=== PATIENT | female | born 1985 | race Caucasian/White ===

== ENCOUNTER → 2016-07-22 | Outpatient (CLI) | payer BC ==
[~2016-07-22] MED LIST: ASCO1CHW13; CYAN1LOZ2; FERR1TAB23; MTR600X PO; OXYC-57 PO; PRENTAB26 PO
[2016-07-22 13:58] LABS: URINE APPEARANCE CLEAR (CLEAR); URINE BILIRUBIN NEG (NEG); URINE COLOR YELLOW; URINE NITRITE NEG (NEG); URINE SPECIFIC GRAVITY 1.002 (1.000-1.030); UROBILINOGEN NEG (NEG)
[2016-07-22 13:59] LABS: MANUAL MICROSCOPIC REQUIRED? NO; REVIEW REQ? NO
== END | disposition home or self-care (01) ==
LOC: C.LABSPEC 15:15
PROVIDERS: ATTEND Obstetrics & Gynecology
DX: O09.219 Supervision of pregnancy with history of pre-term labor, unspecified trimester (principal)

== ENCOUNTER → 2016-07-29 | Outpatient (CLI) | payer BC ==
[2016-07-29 12:21] LABS: BASO % 0.6 %; BASO ABS # 0.05 K/uL (0-0.2); COMPLETE YES; EOS % 0.9 %; HEMATOCRIT 35.9 % (37-47); IG% 0.1 %; LYMPH % 27.3 %; LYMPH ABS # 2.21 K/uL (1.2-3.4); MEAN CELL VOLUME 85.1 fL (80-100); MEAN CORPUSCULAR HEMOGLOBIN 29.9 pg (25-34); MEAN CORPUSCULAR HGB CONC 35.1 g/dl (32-36); MEAN PLATELET VOLUME 9.7 fL (7.4-10.4); MONO % 5.4 %; NEUT % 65.7 %; PLATELET COUNT 284 K/uL (130-400); RED BLOOD COUNT 4.22 M/uL (4.2-5.4); WHITE BLOOD COUNT 8.11 K/uL (4.8-10.8)
[2016-07-31 01:00] LABS: CHLAMYDIA TRACH RNA*** NOT DETECTED (NOT DETECTED); GC (NEIS GONORRHOEAE)RNA** NOT DETECTED (NOT DETECTED)
== END | disposition home or self-care (01) ==
LOC: C.LAB1850 11:05
PROVIDERS: ATTEND Obstetrics & Gynecology
DX: O09.91 Supervision of high risk pregnancy, unspecified, first trimester (principal)

== ENCOUNTER → 2016-09-29 | Outpatient (CLI) | payer BC ==
[2016-09-29 12:44] LABS: GTGD 50 Grams
[2016-09-30 14:10] LABS: AFP CONCENTRATION 21.7 NG/ML; AFPTS GESTATIONAL AGE 16.1 WEEKS; AFPTS INSULIN DEP DIABETIC? NO; AFPTS MATERNAL WT 166 LBS; ALPHA-FETOPROTEIN RACE CAUCASIAN=W; HISTORY OF NTD NO; REPEAT SAMPLE? NO
== END | disposition home or self-care (01) ==
LOC: C.LAB1850 09:29
PROVIDERS: ATTEND Obstetrics & Gynecology
DX: O09.212 Supervision of pregnancy with history of pre-term labor, second trimester (principal)

== ENCOUNTER → 2016-12-22 | Outpatient (CLI) | payer BC ==
[2016-12-22 10:38] LABS: HEMATOCRIT 33.3 % (37-47)
[2016-12-22 12:07] LABS: GTGD 50 Grams
[2016-12-22 13:03] LABS: URINE APPEARANCE CLEAR (CLEAR); URINE BILIRUBIN NEG (NEG); URINE COLOR YELLOW; URINE NITRITE NEG (NEG); URINE PH 6.5 (4.5-7.5); URINE SPECIFIC GRAVITY 1.009 (1.000-1.030); UROBILINOGEN NEG (NEG)
[2016-12-22 13:06] LABS: MANUAL MICROSCOPIC REQUIRED? NO; REVIEW REQ? NO
== END | disposition home or self-care (01) ==
LOC: C.LAB1850 09:37
PROVIDERS: ATTEND Obstetrics & Gynecology
DX: O09.213 Supervision of pregnancy with history of pre-term labor, third trimester (principal); Z3A.00 Weeks of gestation of pregnancy not specified

== ENCOUNTER 2017-02-16 15:49 | Inpatient (IN) | payer BC ==
[~2017-02-16] VITALS: Ht 162.6 cm; Wt 91.0 kg
[2017-02-16 16:13] VITALS: Ht 162.6 cm; Wt 91.0 kg
--- NOTE | 2017-02-16 17:45 | DIAGNOSTIC IMAGING REPORT ---
Study: biophysical profile. HISTORY: Labored difficulty. Decreased movements Findings: Fetus scores 8 out of a possible 8. movements are minimal but are nevertheless present.] Fluid index 8.23 cm. heartbeat 1 35 bpm. Anterior placenta. Estimated gestational age 36 weeks 1 day. IMPRESSION: 1. biophysical profile 8 out of a possible 8. 2. movements are present but appear somewhat diminished. Electronically signed by: Giovani Pemberton M.D. 02/16/2017 5:44 PM Dictated Date/Time: 02/16/2017 5:41 PM
[2017-02-16 18:51] LABS: BASO % 0.2 %; BASO ABS # 0.03 K/uL (0-0.2); EOS % 0.7 %; HEMATOCRIT 36.3 % (37-47); IG% 0.6 %; LYMPH % 20.3 %; LYMPH ABS # 2.91 K/uL (1.2-3.4); MEAN CELL VOLUME 86.8 fL (80-100); MEAN CORPUSCULAR HEMOGLOBIN 30.6 pg (25-34); MEAN PLATELET VOLUME 10.7 fL (7.4-10.4); MONO % 8.3 %; NEUT % 69.9 %; PLATELET COUNT 199 K/uL (130-400); RED BLOOD COUNT 4.18 M/uL (4.2-5.4); WHITE BLOOD COUNT 14.31 K/uL (4.8-10.8)
--- NOTE | 2017-02-16 18:54 | HISTORY & PHYSICAL EXAMINATION ---
DATE OF ADMISSION: 02/16/2017 PRINCIPAL DIAGNOSIS: Intrauterine at 36 weeks and 1 day in labor, breech presentation, prior section. PRINCIPAL PROCEDURE: Repeat low transverse cervical section. HISTORY OF PRESENT ILLNESS: The patient is a 31-year-old 2, para 0-1-0-1 white female who presented at the office for her regular-scheduled visit during a nonstress test. There was noted to be a 2-minute decel to the 90s, on the heart rate tracing. She was sent to labor and delivery for further monitoring, heart tones were reactive. She did have a biophysical profile which was 10/10, although it was present was decreased over the normal on the biophysical profile. She was complaining also of contractions that started earlier were getting stronger. Her first baby delivered at 31 weeks and she was unaware of contractions at that time either. She was noted to be 3-4 cm dilated by cervical exam here in L&D with a breech presentation at minus 2 station. heart tones have been reactive with another short deceleration to 90 beats per minute with rapid recovery to baseline. Because of the advanced dilation and the breech presentation, we will proceed with repeat section at this time. The patient and her agree with this plan and all their questions have been answered and are willing to proceed. PAST MEDICAL HISTORY: Significant for a didelphys uterus and mitral valve prolapse, for which she does not require antibiotic prophylaxis. PAST SURGICAL HISTORY: Right hip surgery, wisdom teeth removed and a section which was done in 2014. ALLERGIES: She has no known drug allergies. MEDICATIONS: Vielka shots and a vitamin. OBSTETRICAL AND GYNECOLOGICAL HISTORY: No history of PID, VD or herpes. She did have an abnormal Pap in the past, but they have been normal since 2004. 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 Delivery in 2015 at 31 weeks for labor with delivery of a 3 pound 12 ounce viable male infant. She had no complications following that surgery. SOCIAL HISTORY: She does not smoke or drink. FAMILY HISTORY: Noncontributory. LABORATORY DATA: Blood type is A positive. Antibody screen is negative. Pap smear was atypical cells of unknown significance but HPV negative. Rubella is immune. RPR is nonreactive. Hepatitis is negative. HIV is negative. Chlamydia and GC are negative. Panorama was negative. Anatomy was complete and normal. Growth scans have been within normal limits. NSTs have been reactive until today. Glucola screens were negative. Hemoglobin at 28 weeks was 11.3, hematocrit 33.3. PHYSICAL EXAMINATION: VITAL SIGNS: Stable. She is afebrile. LUNGS: Clear to auscultation. HEART: Regular rate and rhythm. No murmurs or gallops appreciated. ABDOMEN: Gravid, estimated weight is 6 pounds. She has a well-healed low transverse skin incision. No hepatosplenomegaly or masses palpable. PELVIC: Cervix is 3-4 cm soft, thin and minus 2 station with glenna breech presentation. EXTREMITIES: With trace edema. ASSESSMENT: A 31-year-old now presents at 36 weeks with breech presentation and in early labor. Prior section was done at 31 weeks because of labor. Please see the orders for further directions. MTDD
[2017-02-16 18:58] LABS: COMPLETE YES; MEAN CORPUSCULAR HGB CONC 35.3 g/dl (32-36)
[2017-02-16] MEDS ORDERED: CEFAZOLIN IV 2,000 MG in DEXTROSE 5% 50ML 50 ML IV SCH (19:00)
[2017-02-16] MEDS ORDERED: CITRIC ACID/SODIUM CITRATE 15 ML UDC PO ONE (19:00)
[2017-02-16] MEDS ORDERED: MoRPHine SULFATE PF 1 MG/ML 10 ML AMP/VIAL ONE (19:33)
[2017-02-16] MEDS ORDERED: SODIUM CHLORIDE 0.9% 1000ML 1,000 ML IV PRN (20:27)
[2017-02-16] MEDS ORDERED: LACTATED RINGER'S 1000ML 500 ML IV PRN (20:27)
[2017-02-16] MEDS ORDERED: NALOXONE HCL INJ 0.08 MG in SYRINGE 1.8 ML IV PRN (20:27)
[2017-02-16] MEDS ORDERED: NALOXONE HCL INJ 1 MG in SODIUM CHLORIDE 0.9% 1000ML 1,000 ML IV PRN (20:27)
[2017-02-16] MEDS ORDERED: FENTANYL CITRATE INJ 50 MCG/1 ML 2 ML VIAL IV PRN (20:30)
[2017-02-16] MEDS ORDERED: MEPERIDINE HCL 25 MG/ML CARP IV PRN ×2 (20:30)
[2017-02-16] MEDS ORDERED: MoRPHine SULFATE PF 1 MG/ML 10 ML AMP/VIAL EPI PRN (20:30)
[2017-02-16] MEDS ORDERED: HYDROmorphone INJ 1 MG/ML SYR IV PRN (20:30)
[2017-02-16] MEDS ORDERED: LABETALOL HCL IV 5 MG/ML 20ML IV PRN (20:30)
[2017-02-16] MEDS ORDERED: NALBUPHINE HCL INJ 10 MG/ML AMP IV PRN (20:30)
[2017-02-16] MEDS ORDERED: NO NARCOTICS OR SEDATIVES SCH (20:30)
[2017-02-16] MEDS ORDERED: ATROPINE SULFATE 0.1 MG/ML 5ML SYR IV PRN (20:30)
[2017-02-16] MEDS ORDERED: NALOXONE HCL 0.4 MG/1 ML VIAL/CARP IV PRN (20:30)
[2017-02-16] MEDS ORDERED: DiphenhydrAMINE HCL 50 MG/ML VIAL IV PRN ×2 (20:30)
[2017-02-16] MEDS ORDERED: MoRPHine SULFATE 2 MG/ML CARP IV PRN (20:30)
[2017-02-16] MEDS ORDERED: ONDANSETRON INJ 2 MG/ML 2 ML VIAL IV PRN ×2 (20:30)
[2017-02-16] MEDS ORDERED: EpHEDrine SULFATE INJ 50 MG/ML AMP IV PRN ×2 (20:30)
[2017-02-16] MEDS ORDERED: OXYTOCIN INJ 10 UNITS/ML VIAL ONE (20:51)
[2017-02-16] MEDS ORDERED: EpHEDrine SULFATE INJ 50 MG/ML AMP ONE (20:51)
[2017-02-16] MEDS ORDERED: PROMETHAZINE HCL INJ 25 MG in SODIUM CHLORIDE 0.9% 50ML 50 ML IV PRN (21:00)
[2017-02-16] MEDS ORDERED: MAGNESIUM HYDROXIDE SUSP 30 ML UDC PO PRN (21:00)
[2017-02-16] MEDS: SIMETHICONE 80 MG CHEW PO SCH (21:00)
[2017-02-16] MEDS ORDERED: SENNA 8.6 MG TAB PO PRN (21:00)
[2017-02-16] MEDS ORDERED: LANOLIN OINT EXT PRN ×2 (21:00)
--- NOTE | 2017-02-16 21:07 | [facility] Operative Report ---
Operative Report Operative Date Feb 16, 2017. Pre-Operative Diagnosis 1. Breech and active labor at 36 weeks Post-Operative Diagnosis Same Procedure(s) Performed Repeat caesarean section with lower uterine transverse incision. Delivery of live female child at 2000- 6lbs [address]oz[address] Surgeon Dr. Mckeon Aromatherapist Surgeon(s) Prisca Gabriel RN Estimated Blood Loss 600CC Findings uterine didelphys with in right uterine horn. normal bilateral ovaries & tubes Fluids 1600 Specimens Cord blood Placenta-hold Drains Humphries to straight drainagae Anesthesia SAB Complication(s) None Disposition L&D I attest to the content of the Intraoperative Record and any orders documented therein. Any exceptions are noted below.
[2017-02-16] MEDS: OXYTOCIN INJ 20 UNITS in LACTATED RINGER'S 1000ML 1,000 ML IV SCH (21:24)
[2017-02-16] MEDS: KETOROLAC TROMETHAMINE 30 MG/ML VIAL IV. PRN (22:15)
[2017-02-16 23:30] VITALS: O2SAT 96
[2017-02-16 23:50] VITALS: BP 115/82; PULSE 63; TEMP 36.7; O2SAT 97
[2017-02-17] VITALS (20 sets, daily range): BP systolic 108–126; BP diastolic 63–78; PULSE 60–84; TEMP 36.5–37.1; O2SAT 93–98
--- NOTE | 2017-02-17 00:42 | Anesthesiology Progress Note ---
Anesthesia Post Op Note Date & Time Feb 17, 2017 at 00:42 Vital Signs Pain Intensity: 2.0 Notes Mental Status: alert / awake / arousable, participated in evaluation Pt Amnestic to Procedure: Yes Nausea / Vomiting: adequately controlled Pain: adequately controlled Airway Patency, RR, SpO2: stable & adequate BP & HR: stable & adequate Hydration State: stable & adequate Neuraxial Anesthesia: was administered, sensory block is resolving Anesthetic Complications: no major complications apparent
--- NOTE | 2017-02-17 01:23 | OB/GYN Progress Note ---
[employer] Progress Note Date of Service Feb 17, 2017. Subjective conversation w/ patient, physical exam, chart review, lab review Ambulation: limited ambulation Voiding: ambriz catheter in place Passing Gas: Yes Diet Tolerance: Clear Liquids Lochia: Moderate Feeding Type: Breast Feeding Pain: /10 Review of Systems Constitutional: No fever Respiratory: No shortness of breath Cardiac: No chest pain Abdomen: No nausea, No vomiting Female : No dysuria Objective Vital Signs Date Time Temp Pulse Resp B/P (MAP) Pulse Ox O2 Delivery O2 Flow Rate FiO2 02/17/17 00:30 18 97 02/16/17 23:50 97 Room Air 02/16/17 23:50 36.7 63 16 115/82 (93) 97 Room Air 02/16/17 23:30 16 96 Physical Exam General Appearance: WELL-APPEARING Respiratory/Chest: lungs clear, normal breath sounds, no respiratory distress Cardiovascular: regular rate, rhythm Abdomen: normal bowel sounds, non tender, soft Fundus: Firm, Relation to Umbilicus (3 FB) Incision Description: Clean, Dry & Intact Extremities: non-tender, + pedal edema (very mild) Laboratory Results Last 24 Hours Test 02/16/17 18:32 White Blood Count 14.31 K/uL Red Blood Count 4.18 M/uL Hemoglobin 12.8 g/dL Hematocrit 36.3 % Mean Corpuscular Volume 86.8 fL Mean Corpuscular Hemoglobin 30.6 pg Mean Corpuscular Hemoglobin Concent 35.3 g/dl Platelet Count 199 K/uL Mean Platelet Volume 10.7 fL Neutrophils (%) (Auto) 69.9 % Lymphocytes (%) (Auto) 20.3 % Monocytes (%) (Auto) 8.3 % Eosinophils (%) (Auto) 0.7 % Basophils (%) (Auto) 0.2 % Neutrophils # (Auto) 9.99 K/uL Lymphocytes # (Auto) 2.91 K/uL Monocytes # (Auto) 1.19 K/uL Eosinophils # (Auto) 0.10 K/uL Basophils # (Auto) 0.03 K/uL RDW Standard Deviation 41.1 fL RDW Coefficient of Variation 13.0 % Immature Granulocyte % (Auto) 0.6 % Immature Granulocyte # (Auto) 0.09 K/uL Medications Current Inpatient Medications Medications (Trade) Dose Ordered Sig/Demi Route Start Time Stop Time Status Last Admin Dose Admin Naloxone HCl (Narcan Inj) 0.1 mg UD PRN IV 02/16/17 20:30 02/17/17 13:40 Diphenhydramine HCl (Benadryl Inj) 25 mg Q6H PRN IV 02/16/17 20:30 02/17/17 13:40 Nalbuphine HCl (Nubain Inj) 5 mg Q10M PRN IV 02/16/17 20:30 02/17/17 13:40 Naloxone HCl 1 mg/ Sodium Chloride 1,002.5 ml @ 50 mls/hr Q20H3M PRN IV 02/16/17 20:27 02/17/17 13:40 Ondansetron HCl (Zofran Inj) 4 mg Q6H PRN IV 02/16/17 20:30 02/17/17 13:40 Ketorolac Tromethamine (Toradol Inj) 30 mg Q6H PRN IV. 02/16/17 20:30 02/17/17 13:40 02/16/17 22:15 30 MG Meperidine HCl (Demerol Inj) 25 mg Q15M PRN IV 02/16/17 20:30 02/17/17 13:40 02/17/17 00:43 25 MG Miscellaneous Information (Dc Intraspinal Morphine) 1 ea 1340 ONCE N/A 02/17/17 13:40 02/17/17 13:41 Miscellaneous Information (No Narcotics Or Sedatives) 1 ea UD N/A 02/16/17 20:30 02/17/17 13:40 Naloxone HCl 0.08 mg/Syringe 2 ml @ 1 mls/min Q2M PRN IV 02/16/17 20:27 02/17/17 13:40 Diphenhydramine HCl (Benadryl Cap) 50 mg HS PRN PO 02/16/17 20:30 02/17/17 13:40 Diphenhydramine HCl (Benadryl Inj) 25 mg HS PRN IV 02/16/17 20:30 02/17/17 13:40 Morphine Sulfate (MoRPHine SULFATE INJ) 2 mg Q6H PRN IV 02/16/17 20:30 02/17/17 13:40 Lactated Ringer's 500 ml @ 999 mls/hr Q31M PRN IV 02/16/17 20:27 02/17/17 13:40 Ephedrine Sulfate (EpHEDrine SULFATE INJ) 10 mg Q5M PRN IV 02/16/17 20:30 02/17/17 13:40 Morphine Sulfate (Duramorph Pf Inj) TODAY PRN EPI 02/16/17 20:30 02/17/17 13:40 Sodium Chloride 1,000 ml @ 15 mls/hr Q24H PRN IV 02/16/17 20:27 02/17/17 13:40 Oxytocin 20 units/ Lactated Ringer's 1,002 ml @ 125 mls/hr Q8H1M IV 02/16/17 20:57 02/17/17 12:57 02/16/17 21:24 125 MLS/HR Ketorolac Tromethamine (Toradol Inj) 30 mg Q6H PRN IV. 02/17/17 13:40 02/22/17 13:39 Meperidine HCl (Demerol Inj) 50 mg Q4H PRN IV 02/17/17 13:40 03/03/17 13:39 Meperidine HCl (Demerol Inj) 75 mg Q4H PRN IV 02/17/17 13:40 03/03/17 13:39 Oxycodone/ Acetaminophen (Percocet 5-325mg Tab) 1 tab Q4H PRN PO 02/17/17 13:40 03/03/17 13:39 Oxycodone/ Acetaminophen (Percocet 5-325mg Tab) 2 tab Q4H PRN PO 02/17/17 13:40 03/03/17 13:39 Ibuprofen (Motrin Tab) 600 mg Q4H PRN PO 02/16/17 21:00 03/18/17 20:59 Promethazine HCl 25 mg/Sodium Chloride 51 ml @ 204 mls/hr Q4H PRN IV 02/16/17 21:00 03/18/17 20:59 Ondansetron HCl (Zofran Inj) 4 mg Q4H PRN IV 02/17/17 13:40 03/19/17 13:39 Prenat Multivit/ Mathews/Iron/Folic Ac ( Vitamin Tab) 1 tab DAILY PO 02/17/17 08:00 03/19/17 07:59 Bisacodyl (Dulcolax Tab) 5 mg HS ONCE PO 02/17/17 22:00 02/17/17 22:01 Docusate Sodium (coLACE CAP) 100 mg BID PO 02/17/17 08:00 03/19/17 07:59 Magnesium Hydroxide (Milk Of Magnesia Susp) 30 ml HS PRN PO 02/16/17 21:00 03/18/17 20:59 Lanolin (Lanolin Oint) PRN PRN EXT 02/16/17 21:00 03/18/17 20:59 Zolpidem Tartrate (Ambien Tab) 5 mg HSZ PRN PO 02/17/17 13:40 03/19/17 13:39 Simethicone (Mylicon Chew Tab) 80 mg QID PO 02/16/17 21:00 03/18/17 20:59 Diphenhydramine HCl (Benadryl Cap) 25 mg QID PRN PO 02/17/17 13:40 03/19/17 13:39 Diphenhydramine HCl (Benadryl Inj) 25 mg QID PRN IV 02/17/17 13:40 03/19/17 13:39 Senna (Senokot Tab) 17.2 mg HS PRN PO 02/16/17 21:00 03/18/17 20:59 Assessment and Plan Post-Op Day Number: 1 Continue Routine Care: Resident Physician Supervision Note: I interviewed and examined the patient. Discussed with Dr. Rodriguez and agree with findings and plan as documented in the note. Any exceptions or clarifications are listed here: [None] Documented By: Ml Cortez A/P: This is a 31 y/o female, , POD#1 s/p repeat for breech and active labor at 36 weeks. She is clinically stable. Plan: - Vitals signs are reviewed and WNL (Tmax 36.9 ) - Last Hgb is 12.8. This AM pending - Blood type A+, GBS unknown, Rubella Immune - Routine post operative care - Encourage ambulation, monitor and control pain with medication as needed, continue with regular diet as tolerated and monitor lochia - Stool softeners and sitz bath recommended - Encourage breast feeding and educate about breast feeding Resident Involvement: Resident Care Provided Care Provided: OB Delivery
--- NOTE | 2017-02-17 03:49 | OPERATIVE REPORT ---
DATE OF OPERATION: 02/16/2017 SURGEON: Ml Mart MD TITLE 1 TUTOR: Prisca Gabriel RN PREOPERATIVE DIAGNOSES: Intrauterine at 36 weeks in labor with breech presentation, prior section and uterine didelphys. POSTOPERATIVE DIAGNOSES: Same plus delivery of a viable female infant, 6 pounds 7 ounces. PROCEDURE: Repeat low transverse cervical section. ANESTHESIA: Subarachnoid block. BLOOD LOSS: 600 mL. HISTORY: The patient is a 31-year-old 2, para 0-1-0-1 white female who had presented for her regularly scheduled office visit for a nonstress test. There had been a 2-minute deceleration at that time. She was sent to labor and delivery for further monitoring, even though she had a 10/10 biophysical profile. She had another deceleration to 90 beats per minute with rapid recovery to baseline. The patient was feeling uncomfortable with contractions and on pelvic exam her cervix was noted to be 3-4 cm dilated, 80% effaced with presenting breech. Because of the deceleration and the more advanced dilation, we elected to proceed with repeat low transverse cervical section. The patient and are both agreeable to this and all their questions were answered to their satisfaction. GROSS FINDINGS: Uterus is gravid with the uterus in the right horn. Bilateral ovaries and fallopian tubes are grossly normal. The left horn appears to be rudimentary and connects with the uterine cavity. The was in the complete breech presentation as well. DESCRIPTION OF PROCEDURE: After patient received adequate subarachnoid block, she was prepped and draped in the usual sterile fashion. A low transverse skin incision was made with a scalpel and carried to the fascia with the same scalpel. The fascial incision was then extended with Huston scissors and the underlying rectus muscle was bluntly and sharply dissected off of the overlying fascia. The rectus muscles were divided along the midline and the underlying peritoneum elevated and entered bluntly. The bladder was then taken down off of the anterior surface of the uterus. As noted earlier, the was in the right uterine horn. The bladder was taken down off of the anterior surface of the right horn of the uterus and placed behind the bladder blade. The lower uterine segment was then entered with the scalpel and extended transversely. The was delivered from the complete breech presentation with moderate fundal pressure. Mouth and nasopharynx were suctioned upon delivery. There was spontaneous crying and the was moving all 4 limbs. The cord was clamped and cut and the was handed off to Dr. Fitch who was in attendance as patient navigator. The placenta was then manually removed and the uterus exteriorized and covered with a clean lap sponge. The uterine cavity was explored and found to be free of any placental tissue or membranes. The uterus was then closed in 2 layers in a running locking imbricating fashion with 0 Monocryl. The incision was reinforced at the area of the septum with additional stitches of Monocryl in a [id number] fashion. The posterior cul-de-sac was then irrigated with normal saline. The incision was examined and found to have excellent hemostasis after putting the uterus back inside the abdominal cavity, there noted to be oozing at the center of the incision on the uterus. This was secured with running stitch of 0 Monocryl. At this point, hemostasis noted to be excellent. The gutters were explored and found to be free of any clot or fluid. The anterior cul-de-sac was then irrigated with normal saline. The uterine incision continued to have excellent hemostasis and then the rectus muscles were closed in the midline with individual stitches of 0 Monocryl. The fascia was closed in a running fashion with 0 Vicryl. The adipose layer was then irrigated with normal saline. Bleeding was controlled with the Bovie. She had a keloid scar from her prior section and this was removed with Metzenbaum scissors. The Dagoberto's fascia was then brought together in a running fashion with 3-0 plain catgut. Skin edges were reapproximated using a subcuticular stitch of 4-0 Vicryl. The patient tolerated the procedure well and at the end of the case had requested removal of 2 skin tags of the perineal area, this was done with Metzenbaum scissors and bleeding was controlled with the Bovie. No dressing was applied in that area. Urine was clear at the end of the case. Mother and infant were doing well after delivery. I attest to the content of the Intraoperative Record and any orders documented therein. Any exception s are noted below.
[2017-02-17] MEDS: OXYTOCIN INJ 20 UNITS in LACTATED RINGER'S 1000ML 1,000 ML IV SCH (05:29)
[2017-02-17] MEDS: KETOROLAC TROMETHAMINE 30 MG/ML VIAL IV. PRN ×2 (05:34→11:39)
[2017-02-17 07:32] LABS: HEMATOCRIT 30.7 % (37-47)
[2017-02-17] MEDS: DOCUSATE SODIUM 100 MG CAP PO SCH ×2 (08:11→19:40)
[2017-02-17] MEDS: PRENATAL VITAMIN TAB PO SCH (08:11)
[2017-02-17] MEDS: SIMETHICONE 80 MG CHEW PO SCH ×4 (08:12→19:41)
[2017-02-17] MEDS ORDERED: KETOROLAC TROMETHAMINE 30 MG/ML VIAL IV. PRN (13:40)
[2017-02-17] MEDS ORDERED: DC INTRASPINAL MORPHINE ONE (13:40)
[2017-02-17] MEDS ORDERED: MEPERIDINE HCL 50 MG/ML CARP IV PRN ×2 (13:40)
[2017-02-17] MEDS ORDERED: ONDANSETRON INJ 2 MG/ML 2 ML VIAL IV PRN (13:40)
[2017-02-17] MEDS ORDERED: ZOLPIDEM TARTRATE 5 MG TAB PO PRN (13:40)
[2017-02-17] MEDS ORDERED: DiphenhydrAMINE HCL 50 MG/ML VIAL IV PRN (13:40)
[2017-02-17] MEDS: OXYCODONE/ACETAMINOPHEN 5-325 TAB PO PRN ×2 (14:15→19:42)
[2017-02-17] MEDS: IBUPROFEN 600 MG TAB PO PRN (17:01)
[2017-02-17] MEDS ORDERED: BISACODYL 5 MG TABEC PO ONE (22:00)
[2017-02-18] MEDS: OXYCODONE/ACETAMINOPHEN 5-325 TAB PO PRN ×7 (00:01→23:38)
[2017-02-18] MEDS: IBUPROFEN 600 MG TAB PO PRN ×6 (05:47→23:39)
--- NOTE | 2017-02-18 06:19 | OB/GYN Progress Note ---
[facility] Progress Note Date of Service Feb 18, 2017. Subjective conversation w/ patient, physical exam, chart review, lab review Ambulation: ambulating normally Voiding: no voiding problems Passing Gas: Yes Diet Tolerance: Regular Diet Lochia: Small Feeding Type: Breast Feeding Pain: 6/10 pain meds helpful Review of Systems Constitutional: No fever Respiratory: No shortness of breath Cardiac: No chest pain Abdomen: No nausea, No vomiting Female : No dysuria Objective Vital Signs Date Time Temp Pulse Resp B/P (MAP) Pulse Ox O2 Delivery O2 Flow Rate FiO2 02/17/17 23:50 Room Air 02/17/17 23:50 36.9 78 18 108/65 (79) Room Air 02/17/17 19:15 37.1 81 16 115/68 (84) 96 Room Air 02/17/17 15:45 96 Room Air 02/17/17 15:45 37.0 84 18 126/78 (94) 96 Room Air 02/17/17 13:30 20 98 02/17/17 12:30 18 97 02/17/17 11:30 20 95 02/17/17 11:12 36.5 76 20 109/73 (85) 95 Room Air 02/17/17 10:30 20 93 02/17/17 09:30 18 95 02/17/17 08:30 20 96 02/17/17 07:30 Room Air 02/17/17 07:30 18 98 02/17/17 07:24 36.6 66 20 126/63 (84) 96 Room Air 02/17/17 06:30 18 98 Physical Exam General Appearance: WELL-APPEARING Respiratory/Chest: lungs clear, normal breath sounds, no respiratory distress Cardiovascular: regular rate, rhythm Abdomen: normal bowel sounds, non tender, soft Fundus: Firm, Relation to Umbilicus (2 FB below) Extremities: non-tender, no pedal edema Laboratory Results Last 24 Hours Test 02/17/17 07:02 02/18/17 06:00 Hemoglobin 10.4 g/dL Hematocrit 30.7 % Medications Current Inpatient Medications Medications (Trade) Dose Ordered Sig/Demi Route Start Time Stop Time Status Last Admin Dose Admin Ketorolac Tromethamine (Toradol Inj) 30 mg Q6H PRN IV. 02/17/17 13:40 02/22/17 13:39 Meperidine HCl (Demerol Inj) 50 mg Q4H PRN IV 02/17/17 13:40 03/03/17 13:39 Meperidine HCl (Demerol Inj) 75 mg Q4H PRN IV 02/17/17 13:40 03/03/17 13:39 Oxycodone/ Acetaminophen (Percocet 5-325mg Tab) 1 tab Q4H PRN PO 02/17/17 13:40 03/03/17 13:39 02/18/17 01:14 1 TAB Oxycodone/ Acetaminophen (Percocet 5-325mg Tab) 2 tab Q4H PRN PO 02/17/17 13:40 03/03/17 13:39 02/18/17 05:46 2 TAB Ibuprofen (Motrin Tab) 600 mg Q4H PRN PO 02/16/17 21:00 03/18/17 20:59 02/18/17 05:47 600 MG Promethazine HCl 25 mg/Sodium Chloride 51 ml @ 204 mls/hr Q4H PRN IV 02/16/17 21:00 03/18/17 20:59 Ondansetron HCl (Zofran Inj) 4 mg Q4H PRN IV 02/17/17 13:40 03/19/17 13:39 Prenat Multivit/ Delta/Iron/Folic Ac ( Vitamin Tab) 1 tab DAILY PO 02/17/17 08:00 03/19/17 07:59 02/17/17 08:11 1 TAB Docusate Sodium (coLACE CAP) 100 mg BID PO 02/17/17 08:00 03/19/17 07:59 02/17/17 19:40 100 MG Magnesium Hydroxide (Milk Of Magnesia Susp) 30 ml HS PRN PO 02/16/17 21:00 03/18/17 20:59 Lanolin (Lanolin Oint) PRN PRN EXT 02/16/17 21:00 03/18/17 20:59 Zolpidem Tartrate (Ambien Tab) 5 mg HSZ PRN PO 02/17/17 13:40 03/19/17 13:39 Simethicone (Mylicon Chew Tab) 80 mg QID PO 02/16/17 21:00 03/18/17 20:59 02/17/17 19:41 80 MG Diphenhydramine HCl (Benadryl Cap) 25 mg QID PRN PO 02/17/17 13:40 03/19/17 13:39 Diphenhydramine HCl (Benadryl Inj) 25 mg QID PRN IV 02/17/17 13:40 03/19/17 13:39 Senna (Senokot Tab) 17.2 mg HS PRN PO 02/16/17 21:00 03/18/17 20:59 Assessment and Plan Post-Op Day Number: 2 Continue Routine Care: Resident Physician Supervision Note: I interviewed and examined the patient. Discussed with Dr. Rodriguez and agree with findings and plan as documented in the note. Any exceptions or clarifications are listed here: [None] Documented By: Catrachita Khalil A/P: This is a 31 y/o female, , POD#2 s/p repeat for breech and active labor at 36 weeks. She is clinically stable. Plan: - Vitals signs are reviewed and WNL (Tmax 37 ) - Last Hgb is 10.4 (02/17). This AM pending - Blood type A+, GBS unknown, Rubella Immune - Routine post operative care - Encourage ambulation, monitor and control pain with medication as needed, continue with regular diet as tolerated and monitor lochia - Stool softeners and sitz bath recommended - Encourage breast feeding and educate about breast feeding Resident Involvement: Resident Care Provided Care Provided: OB Delivery
[2017-02-18 07:40] VITALS: BP 106/69; PULSE 67; TEMP 36.6
[2017-02-18] MEDS: DOCUSATE SODIUM 100 MG CAP PO SCH ×2 (07:46→19:49)
[2017-02-18] MEDS: SIMETHICONE 80 MG CHEW PO SCH ×4 (07:46→19:49)
[2017-02-18] MEDS: PRENATAL VITAMIN TAB PO SCH (07:46)
[2017-02-18 08:10] LABS: BASO % 0.6 %; BASO ABS # 0.06 K/uL (0-0.2); COMPLETE YES; EOS % 1.4 %; IG% 0.4 %; LYMPH ABS # 2.07 K/uL (1.2-3.4); MEAN CELL VOLUME 87.7 fL (80-100); MEAN CORPUSCULAR HEMOGLOBIN 29.8 pg (25-34); MEAN PLATELET VOLUME 10.6 fL (7.4-10.4); MONO % 8.1 %; NEUT % 69.5 %; PLATELET COUNT 191 K/uL (130-400); RED BLOOD COUNT 3.42 M/uL (4.2-5.4); WHITE BLOOD COUNT 10.34 K/uL (4.8-10.8)
[2017-02-18 16:00] VITALS: BP 111/73; PULSE 71; TEMP 36.5; O2SAT 97
[2017-02-18 23:45] VITALS: BP 109/70; PULSE 76; TEMP 36.5; O2SAT 97
[2017-02-19] MEDS: IBUPROFEN 600 MG TAB PO PRN ×2 (05:06→10:43)
[2017-02-19] MEDS: OXYCODONE/ACETAMINOPHEN 5-325 TAB PO PRN ×2 (05:06→10:43)
--- NOTE | 2017-02-19 06:13 | OB/GYN Progress Note ---
[employer] Progress Note Date of Service Feb 19, 2017. Subjective conversation w/ patient, physical exam, chart review, lab review Ambulation: ambulating normally Voiding: no voiding problems Passing Gas: Yes Diet Tolerance: Regular Diet Lochia: Small Feeding Type: Breast Feeding Pain: 10 pain Review of Systems Constitutional: No fever Respiratory: No shortness of breath Cardiac: No chest pain Abdomen: No nausea, No vomiting Female : No dysuria Objective Vital Signs Date Time Temp Pulse Resp B/P (MAP) Pulse Ox O2 Delivery O2 Flow Rate FiO2 02/18/17 23:45 36.5 76 18 109/70 (83) 97 Room Air 02/18/17 23:45 Room Air 02/18/17 16:00 Room Air 02/18/17 16:00 36.5 71 16 111/73 (86) 97 Room Air 02/18/17 07:40 36.6 67 16 106/69 (81) Physical Exam General Appearance: WELL-APPEARING Respiratory/Chest: lungs clear, normal breath sounds, no respiratory distress Cardiovascular: regular rate, rhythm Abdomen: normal bowel sounds, non tender, soft Fundus: Firm, Relation to Umbilicus (3 FB below) Incision Description: Clean, Dry & Intact Extremities: non-tender, no pedal edema Laboratory Results Last 24 Hours Test 02/18/17 07:14 White Blood Count 10.34 K/uL Red Blood Count 3.42 M/uL Hemoglobin 10.2 g/dL Hematocrit 30.0 % Mean Corpuscular Volume 87.7 fL Mean Corpuscular Hemoglobin 29.8 pg Mean Corpuscular Hemoglobin Concent 34.0 g/dl Platelet Count 191 K/uL Mean Platelet Volume 10.6 fL Neutrophils (%) (Auto) 69.5 % Lymphocytes (%) (Auto) 20.0 % Monocytes (%) (Auto) 8.1 % Eosinophils (%) (Auto) 1.4 % Basophils (%) (Auto) 0.6 % Neutrophils # (Auto) 7.19 K/uL Lymphocytes # (Auto) 2.07 K/uL Monocytes # (Auto) 0.84 K/uL Eosinophils # (Auto) 0.14 K/uL Basophils # (Auto) 0.06 K/uL RDW Standard Deviation 42.4 fL RDW Coefficient of Variation 13.2 % Immature Granulocyte % (Auto) 0.4 % Immature Granulocyte # (Auto) 0.04 K/uL Medications Current Inpatient Medications Medications (Trade) Dose Ordered Sig/Demi Route Start Time Stop Time Status Last Admin Dose Admin Ketorolac Tromethamine (Toradol Inj) 30 mg Q6H PRN IV. 02/17/17 13:40 02/22/17 13:39 Meperidine HCl (Demerol Inj) 50 mg Q4H PRN IV 02/17/17 13:40 03/03/17 13:39 Meperidine HCl (Demerol Inj) 75 mg Q4H PRN IV 02/17/17 13:40 03/03/17 13:39 Oxycodone/ Acetaminophen (Percocet 5-325mg Tab) 1 tab Q4H PRN PO 02/17/17 13:40 03/03/17 13:39 02/19/17 05:06 1 TAB Oxycodone/ Acetaminophen (Percocet 5-325mg Tab) 2 tab Q4H PRN PO 02/17/17 13:40 03/03/17 13:39 02/18/17 05:46 2 TAB Ibuprofen (Motrin Tab) 600 mg Q4H PRN PO 02/16/17 21:00 03/18/17 20:59 02/19/17 05:06 600 MG Promethazine HCl 25 mg/Sodium Chloride 51 ml @ 204 mls/hr Q4H PRN IV 02/16/17 21:00 03/18/17 20:59 Ondansetron HCl (Zofran Inj) 4 mg Q4H PRN IV 02/17/17 13:40 03/19/17 13:39 Prenat Multivit/ [place]/Iron/Folic Ac ( Vitamin Tab) 1 tab DAILY PO 02/17/17 08:00 03/19/17 07:59 02/18/17 07:46 1 TAB Docusate Sodium (coLACE CAP) 100 mg BID PO 02/17/17 08:00 03/19/17 07:59 02/18/17 19:49 100 MG Magnesium Hydroxide (Milk Of Magnesia Susp) 30 ml HS PRN PO 02/16/17 21:00 03/18/17 20:59 Lanolin (Lanolin Oint) PRN PRN EXT 02/16/17 21:00 03/18/17 20:59 Zolpidem Tartrate (Ambien Tab) 5 mg HSZ PRN PO 02/17/17 13:40 03/19/17 13:39 Simethicone (Mylicon Chew Tab) 80 mg QID PO 02/16/17 21:00 03/18/17 20:59 02/18/17 19:49 80 MG Diphenhydramine HCl (Benadryl Cap) 25 mg QID PRN PO 02/17/17 13:40 03/19/17 13:39 Diphenhydramine HCl (Benadryl Inj) 25 mg QID PRN IV 02/17/17 13:40 03/19/17 13:39 Senna (Senokot Tab) 17.2 mg HS PRN PO 02/16/17 21:00 03/18/17 20:59 Assessment and Plan Post-Op Day Number: 3 Continue Routine Care: A/P: This is a 31 y/o female, , POD#3 s/p repeat for breech and active labor at 36 weeks. She is ambulating and clinically stable. Plan: - Vitals signs are reviewed and WNL (Tmax 37.1 ) - Last Hgb is 10.2 (02/18). - Blood type A+, GBS unknown, Rubella Immune - Routine post operative care - Discussed resting, feeding, pain control, mastitis, control, follow up in 6 weeks and reasons to call sooner, if necessary. - Continue with pain medication as needed, and continue vitamins. - Encourage breast feeding and educate about breast feeding - Patient understands and keen for home. - Plan to discharge home Resident Physician Supervision Note: I was present with Dr. Rodriguez during the history and exam. I discussed the case with the resident and agree with the findings and plan as documented in the note. Any exceptions or clarifications are listed here: POD#3, doing well postop - discharge to home today. Discharge instructions discussed. Documented By: Dalia Lay Resident Involvement: Resident Care Provided Care Provided: OB Delivery
--- NOTE | 2017-02-19 06:21 | Discharge Instructions ---
Discharge Instructions Date of Service Feb 19, 2017. Admission Reason for Admission: Check Labor Discharge Discharge Diagnosis / Problem: after delivery Discharge Goals Goal(s): Routine recovery after delivery Medications Continue Dispensed Medications: supercream, dermaplast, tucks, lansinoh Activity Recommendations Activity Limitations: per Instructions/Follow-up section . Instructions / Follow-Up Instructions / Follow-Up ACTIVITY RECOMMENDATIONS: * Gradual return to full activity over the next 2-3 weeks. * No lifting - nothing heavier than baby over the next 2-3 weeks. * Do not engage in vigorous exercise, sexual activity or sports until cleared by your physician. * Do not drive or operate any motorized equipment until cleared by your physician. * You may shower/bathe daily. MEDICATIONS: For discomfort or pain, you may use Acetaminophen (Tylenol), Ibuprofen (Advil), or Naproxen (Aleve) following the package directions. For constipation you may use Colace following the package directions. BREAST CARE: If you are not breast feeding: * Wear a supportive bra 24 hours a day for one to two weeks. * Avoid stimulating your breasts and nipples as much as possible during the first few weeks after delivery. * When taking a shower, have the warm water hit your back, not breasts. * When your breasts feel full, apply ice packs. Usually three to four times a day helps ease the discomfort. * Take a mild pain medication (Tylenol / Motrin) when you are uncomfortable. If breast feeding: * Use breast milk to lubricate nipples. Lansinoh cream may be used for sore nipples. You do not need to remove cream prior to breast feeding. If using a different brand of cream, check the label for directions regarding removal of cream prior to nursing. * Wear a supportive bra. * If having problems with breasts or breast feeding, call a consultant nurse or your health care provider. SPECIAL CARE INSTRUCTIONS: When you are discharged from the hospital, it is important for you to follow the instructions listed below: * During the first week at home, you should be able to care for yourself and your baby. In addition, the usual light household activities are encouraged. * Limit your activities to the way you feel. Do not try to clean the house or move furniture. Be sensible. * If you actively engage in sports and have done so up until the time of your delivery, you may resume these activities as soon as you feel able. This may take up to one month or even longer. Use good judgment. * Continue to take your vitamins for at least six weeks after the of your baby. * Your diet need not be limited unless you were on a special diet before your delivery. Breast-feeding mothers need around 2500 calories per day and at least 64-80 ounces of fluid per day (8 to 10 glasses). * You should eat foods from the four major food groups. Crash diets or fad diets are to be avoided. Eating lean meats, fresh fruits and vegetables, low-fat dairy products, high fiber foods and a regular exercise program, will help you get back to your pre- weight without putting your health at risk. * Constipation is sometimes a problem after delivery. Take a mild laxative as needed. If breast feeding, Milk of Magnesia is acceptable to use. You may use a suppository or Fleets enema. * A daily shower or tub bath is suggested. Wash incision daily with warm soapy water and pat dry. It doesn't need to be covered unless drainage is present. * A bloody vaginal discharge will usually continue until around four weeks . A small amount of bleeding may continue for as long as six weeks. Vaginal discharge changes from the bright red bleeding after delivery to pink then brownish and finally yellowish-pink before becoming white and disappearing. * Bleeding may increase with activity. Your first period may come in 4-8 weeks. If you are breast feeding, your period may be delayed even longer. * [place] (sex) can begin whenever both you and your partner feel comfortable and do not have any form of genital infection. It is recommended that you wait at least six weeks for internal and external healing to occur. If you have questions, please talk to your health care practitioner. A condom should be used to prevent infection and . * Foreplay, gentle intercourse and lubrication is very important the first several times to prevent pain. A water-based lubricant such as K-Y jelly or Astroglide may be used. * If you have RH negative blood and your baby is RH positive, you will receive RHOGAM by injection prior to discharge. The nurse will give you a card to keep with you that has the date and place that you received RHOGAM after delivery. * During your care, you had a Rubella screen done to check for the presence of rubella antibodies in your blood. If your test was negative, you will receive a Rubella vaccine prior to discharge. This vaccine may cause a fever, soreness at the injection site and flu-like symptoms. If these symptoms persist, notify your health care practitioner. is not advised for one month after a Rubella vaccine. * Verbalizes understanding of car seat law as reviewed with patient nursing. * Car Seat hand-out given and reviewed with patient by nursing. * Shaken baby information reviewed with patient by nursing. Call you doctor if: * Heavy bleeding (saturating several pads an hour) or passing clots the size of your fist. * A fever >101 degrees F (38.3 degrees C) on two occasions four hours apart and /or chills. * Unusual pain in the pelvic or vaginal areas. * Call the doctor for any increased redness, drainage or swelling around the incision and any pain unrelieved by prescribed pain medication. * "Baby Blues" lasting longer than two weeks. If you have any questions or concerns, call your health care practitioner at . FOLLOW UP VISIT: * Please call the office at to schedule a 6 week examination. It is important you keep this appointment. It is important for you to make arrangements for either yearly or twice yearly check-ups thereafter. Current Hospital Diet Patient's current hospital diet: Regular OB Diet Discharge Diet Recommended Diet: Regular Diet Procedures Procedures Performed: Repeat caesarean section with lower uterine transverse incision. Delivery of live female child at 2000- 6lbs 7ozs Pending Studies Studies pending at discharge: no Medical Emergencies . Who to Call and When: Medical Emergencies: If at any time you feel your situation is an emergency, please call [phone] immediately. . Non-Emergent Contact Non-Emergency issues call your: Exterior Interior Specialist . . "Provider Documentation" section prepared by Madhuri Rodriguez. . VTE Core Measure Inpt VTE Proph given/why not?: SCD's
[2017-02-19 07:16] VITALS: BP 108/67; PULSE 74; TEMP 36.9; O2SAT 97
[2017-02-19] MEDS ORDERED: OXYC-57 PO (07:59)
[2017-02-19 08:20] VITALS: BP 110/68; PULSE 69; TEMP 36.4
[2017-02-19] MEDS: PRENATAL VITAMIN TAB PO SCH (08:31)
[2017-02-19] MEDS: DOCUSATE SODIUM 100 MG CAP PO SCH (08:31)
[2017-02-19] MEDS: SIMETHICONE 80 MG CHEW PO SCH (08:31)
[2017-02-19 12:00] VITALS: BP_DIAS 68; PULSE 69; TEMP 36.4
--- NOTE | 2017-02-23 08:42 | DISCHARGE SUMMARY ---
PRINCIPAL DIAGNOSIS: Intrauterine at 36 weeks in labor with breech presentation. PRINCIPAL PROCEDURE: Repeat low transverse cervical section. HISTORY: The patient is a 31-year-old 2, para 0-1-0-1 white female who had been seen in the office for regularly scheduled visit for nonstress test, there had been a deceleration at that time and she was sent to labor and delivery for further monitoring. She was noted to be emi upon her arrival here in labor and delivery and she was dilated 3-4 cm with a known breech presentation. Because of the advanced dilation and labor, a repeat section was done at that time without complications. It was noted that this was in the right horn of the uterus as was her first with a left rudimentary horn. Otherwise, the anatomy was within normal limits and there were no complications with her . She had an uncomplicated postop course. She was eating regular diet on her first postop day, ambulating and voiding without difficulty as well. Hemoglobin on admission was 12.8, hematocrit of 36.3. First postop day hemoglobin 10.4, hematocrit of 30.7. Second postop day hemoglobin 10.2, hematocrit of 30.0. The patient was sent home in good condition with prescriptions for Percocet 1 or 2 tablets p.o. q. 4 hours p.r.n. pain, Motrin 600 mg p.o. q. 4 hours p.r.n. pain. She is to be seen in the office in 6 weeks for a followup visit. She is to call for temperature of 101 degrees or higher, heavy vaginal bleeding, burning with urination, increased redness, drainage or pain in her incision, any calf tenderness or any other concerns.
== END 2017-02-19 12:12 | disposition home or self-care (01) | DRG 765 ==
LOC: C.OPB 15:49 → C.LD 15:49 → C.OPB 18:20 → C.OBG 23:27
PROVIDERS: ADMIT Obstetrics & Gynecology; ATTEND Obstetrics & Gynecology
PROC: 10D00Z1 Extraction of Products of Conception, Low, Open Approach (ICD-10-PCS; principal; 2017-02-16 19:08)
DX: O60.14X0 Preterm labor third trimester with preterm delivery third trimester, not applicable or unspecified (principal); O99.42 Diseases of the circulatory system complicating childbirth; O32.1XX0 Maternal care for breech presentation, not applicable or unspecified; O76 Abnormality in fetal heart rate and rhythm complicating labor and delivery; N85.8 Other specified noninflammatory disorders of uterus; O34.211 Maternal care for low transverse scar from previous cesarean delivery; I34.1 Nonrheumatic mitral (valve) prolapse; O34.599 Maternal care for other abnormalities of gravid uterus, unspecified trimester; Z37.0 Single live birth; Z3A.36 36 weeks gestation of pregnancy; Z79.899 Other long term (current) drug therapy